=== PATIENT | female | born 1960 | race Caucasian/White ===

== ENCOUNTER 2017-08-07 11:14 | Inpatient (IN) | payer MEDICARE ==
[~2017-08-07] VITALS: Ht 162.6 cm; Wt 61.2 kg
[2017-08-07] MEDS ORDERED: QUET50TA PO (11:33)
[2017-08-07] MEDS ORDERED: CITA20TA11 PO (11:33)
[2017-08-07] MEDS ORDERED: CARB1TAB40 PO (11:33)
[2017-08-07] MEDS ORDERED: PROGESTERONE (11:33)
[2017-08-07] MEDS ORDERED: CARB-93 PO (11:33)
[2017-08-07] MEDS ORDERED: MENEST (11:33)
[2017-08-07] MEDS ORDERED: KLONOPIN (11:33)
--- NOTE | 2017-08-07 11:45 | NUR ---
DR CAZARES AT THE BEDSIDE FOR MSE.
[2017-08-07 12:22] LABS: BASOPHILS % (AUTO) 0.4 % (0.0-2.0); EOSINOPHILS % (AUTO) 0.3 % (0.0-7.0); HEMATOCRIT 38.2 % (31.2-41.9); HEMOGLOBIN 13.2 g/dL (10.9-14.3); LYMPHOCYTES # (AUTO) 1.4 K/uL (20.0-40.0); LYMPHOCYTES % (AUTO) 16.6 % (20.5-51.5); MEAN CORPUSCULAR HGB CONC 35 g/dL (32.3-35.6); MEAN CORPUSCULAR VOLUME 86.4 fL (75.5-95.3); MONOCYTES # (AUTO) 0.5 K/uL (2.0-10.0); MONOCYTES % (AUTO) 6.2 % (0.0-11.0); NEUTROPHILS # (AUTO) 6.5 K/uL (1.8-8.9); NEUTROPHILS % (AUTO) 76.5 % (38.5-71.5); PLATELET COUNT (AUTO) 141 K/uL (179-408); RED BLOOD CELL COUNT(AUTO) 4.42 MIL/uL (3.63-4.92); WHITE BLOOD COUNT (AUTO) 8.5 K/uL (3.8-11.8)
--- NOTE | 2017-08-07 12:26 | NUR ---
PER B+C REP. PT'Sheng LORD WHO TAKES CARE OF THE PARKINSON'S STIMULANT IS DR CARLOTA NOLAND AT [phone] CELL.
[2017-08-07 12:30] LABS: CREATININE 0.8 mg/dL (0.6-1.3); POTASSIUM 3.3 mmol/L (3.5-5.1)
--- NOTE | 2017-08-07 12:30 | NUR ---
PT OUT OF ER FOR XRAY.
[2017-08-07 12:45] LABS: BILIRUBIN,TOTAL 0.7 mg/dL (0.2-1.0); TOTAL PROTEIN, SERUM 7.3 g/dL (6.4-8.2)
[2017-08-07 13:53] LABS: *BLOOD, URINE NEGATIVE (NEGATIVE); *CLARITY,URINE CLEAR (CLEAR); *COLOR,URINE YELLOW (YELLOW); *KETONES,URINE 2+ (NEGATIVE); *PROTEIN,URINE NEGATIVE (NEGATIVE); *UROBILINOGEN,URINE 0.2 E.U./dl (NORMAL); LEUKOCYTE ESTERASE ,URINE TRACE (NEGATIVE); NITRITE, URINE NEGATIVE (NEGATIVE); PH,URINE 5.5 (5.0-8.0); UGLUCOSE NEGATIVE (NEGATIVE)
[2017-08-07 13:56] LABS: *BILIRUBIN,URIN 1+ (NEGATIVE)
[2017-08-07 13:58] LABS: BACTERIA,URINE FEW /HPF (NONE SEEN); SQUAMOUS EPITHELIAL CELL,UR MANY /HPF (NONE SEEN)
--- NOTE | 2017-08-07 14:02 | NUR ---
TDOD consult requested from Dr. Mantilla. SW arrived to ED and met with KHOI Lacy and Dr. Mantilla to consult on case. SW then met with patient, who was in her assigned ED bed and receptive to meeting with TODD. Patient is a 56 year old female with diagnosis of Parkinson's Disease. Patient was cooperative, maintained appropriate eye contact, affect and behavior WNL. Patient is oriented, although some of her responses were slightly slow. Speech was clear, but tone of voice was low. Patient has been living in a small 4-person B & C for the last 2 months. Patient was brought to the ED today by the caregivers from the [facility] due to multiple falls. Patient walks with a FWW ([employer]) but that she tends to lose her balance. Caregivers Remedios and Meredith confirmed patient's loss of balance incidents, and stated that a caregiver is always with her in the home and that often times patient's loss of balance will result in the caregiver holding the patient from her waist as patient slides down. Caregiver Mercedezi stated that they have made special arrangements throughout the house to support patient's loss of balance incidents, such as lowering her bed close to the ground in order to avoid falls, or setting up her couch in a way that helps support her physical limitations. SW discussed with patient the supportive services that patient has, and patient stated that she has HH services (nursing, PT, and ST) at the & , along with the caregivers. Patient is also seen regularly by a neurologist, which caregiver Meredith stated she saw very recently. Patient's insurance is Medicare and [employer]. Patient does not qualify for [facility] funded caregiver services, but SW did discuss the option of private caregiver agencies as an additional supportive resource, but patient stated that she does not feel like she needs an additional caregiver at this time. SW asked patient if she feels she has sufficient care and support at the [facility], and patient stated that she did. No further interventions needed at this time. SW reported above to Dr. Mantilla and KHOI Lacy. See Dr. Mantilla's notes for medical interventions/plan of care.
--- NOTE | 2017-08-07 14:02 | NUR ---
PT IS IN BED. PT SOMES NO SIGNS OF DISTRESS. PT IS AOX4. WAITING FURTHER MD ORDERS. WILL CONTINUE TO MONITOR.
[2017-08-07] MEDS ORDERED: POTASSIUM CHLORIDE 20 MEQ TAB.PRT.SR PO ONE (14:15)
[2017-08-07] MEDS ORDERED: IV NS 1000 ML 1,000 ML IV ONE (14:15)
[2017-08-07] MEDS ORDERED: POTASSIUM CHLORIDE 20 MEQ TAB.PRT.SR ONE (14:37)
--- NOTE | 2017-08-07 17:45 | NUR ---
RECEIVED CLIENT IN HER ROOM, SHE WAS TRANSPORTED VIA A GURNEY FROM THE ER. NO APPARENT S/S OF DISTRESS, DISCOMFORT OR SOB. CLIENT IS BEING ADMITTED FOR WEAKNESS AND FREQUENT FALLS. CLIENT WAS ABLE TO PROVIDE ANSWERS FOR THE INITIAL ASSESSMENT AND INITIAL PHYSICAL ASSESSMENT. SKIN IS INTACT, SAT 96% AT ROOM AIR. BED AT LOWEST POSITION FOR SAFETY AND CALL LIGHT WITHIN REACH FOR ASSISTANCE
[2017-08-07 19:00] VITALS: BP 104/62
[2017-08-07] MEDS ORDERED: ZOLPIDEM 5 MG TABLET PO PRN (19:00)
[2017-08-07] MEDS ORDERED: HYDROCODONE/APAP 5-325MG TABLET PO PRN (19:00)
[2017-08-07] MEDS ORDERED: MAGNESIUM HYDROXIDE 30 ML LIQUID UDC PO PRN (19:00)
[2017-08-07] MEDS ORDERED: ACETAMINOPHEN 325 MG TABLET PO PRN (19:00)
[2017-08-07] MEDS ORDERED: ONDANSETRON 4 MG/2 ML VIAL IV PRN (19:00)
--- NOTE | 2017-08-07 19:41 | NUR ---
REPORT GIVEN TO PLATFORM MATERIAL HANDLING SUPERVISOR. CLIENT IS STABLE, ATE DINNER. IN A SEMI FOWLERS POSITION. NO APPARENT SIGNS AND SYMPTOMS OF DISTRESS
[2017-08-07] MEDS ORDERED: CEFTRIAXONE 1 G in IV DEXTROSE 5% 50 ML IV SCH (20:00)
[2017-08-07] MEDS ORDERED: DOCUSATE SODIUM 250 MG CAPSULE PO SCH (21:00)
[2017-08-07] MEDS: CARBIDOPA/LEVODOPA 25-100MG TABLET PO SCH (21:00)
[2017-08-07] MEDS ORDERED: CARBIDOPA/LEVODOPA CR 50-200MG TABLET.SA PO SCH (21:00)
[2017-08-07] MEDS: POTASSIUM CHLORIDE 20 MEQ in IV 1/2NS 1000 ML 1,000 ML IV PRN (21:34)
--- NOTE | 2017-08-07 22:51 | NUR ---
Pt states she takes the 25/100 dose of Sinemet in the daytime.
[2017-08-08] VITALS: BP 110/68
[2017-08-08 04:00] VITALS: BP 95/43
--- NOTE | 2017-08-08 04:25 | NUR ---
Pt resting quietly in bed past administration of prn Ambien earlier in the evening. Respirations are even, unlabored on room air, BBS CTA. Denies pain/discomfort. Pt is on fall precautions, reviewed with pt who stated understanding and is complying with precautions. No tremors noted in intentional movement. Bed exit alarm is activated, lights adjusted in room for safety and call light is with pt.
[2017-08-08] MEDS ORDERED: PANTOPRAZOLE SODIUM 40 MG TABLET.DR PO SCH (07:00)
--- NOTE | 2017-08-08 07:30 | NUR ---
RECEIVED CLIENT IN BED IN A SEMI FOWLERS POSITION SLEEPING COMFORTABLY. NO APPARENT SIGNS AND SYMPTOMS OF SOB, PAIN, DISTRESS OR DISCOMFORT. BED IS LOWEST POSITION FOR SAFETY. CALL LIGHT WITHIN REACH FOR ASSISTANCE
[2017-08-08 08:23] LABS: BASOPHILS # (AUTO) 0.1 K/uL (0.0-8.0); EOSINOPHILS # (AUTO) 0.1 K/uL (0.0-0.7); EOSINOPHILS % (AUTO) 1.2 % (0.0-7.0); HEMATOCRIT 36.9 % (31.2-41.9); HEMOGLOBIN 12.5 g/dL (10.9-14.3); LYMPHOCYTES # (AUTO) 1.9 K/uL (20.0-40.0); MEAN CORPUSCULAR HEMOGLOBIN 29.2 uug (24.7-32.8); MEAN CORPUSCULAR HGB CONC 34 g/dL (32.3-35.6); MEAN CORPUSCULAR VOLUME 86.5 fL (75.5-95.3); MONOCYTES # (AUTO) 0.5 K/uL (2.0-10.0); MONOCYTES % (AUTO) 8.5 % (0.0-11.0); NEUTROPHILS # (AUTO) 3.3 K/uL (1.8-8.9); NEUTROPHILS % (AUTO) 57.3 % (38.5-71.5); PLATELET COUNT (AUTO) 126 K/uL (179-408); RED BLOOD CELL COUNT(AUTO) 4.27 MIL/uL (3.63-4.92); WHITE BLOOD COUNT (AUTO) 5.8 K/uL (3.8-11.8)
[2017-08-08 08:40] LABS: BILIRUBIN,TOTAL 0.5 mg/dL (0.2-1.0); CREATININE 0.6 mg/dL (0.6-1.3); MAGNESIUM 1.9 mg/dL (1.8-2.4); PHOSPHOROUS 3.8 mg/dL (2.5-4.9); POTASSIUM 3.7 mmol/L (3.5-5.1); TOTAL PROTEIN, SERUM 6.1 g/dL (6.4-8.2)
[2017-08-08 08:50] LABS: THYROID STIMULATING HORMONE 1.197 mIU/mL (0.358-3.740)
[2017-08-08] MEDS ORDERED: QUETIAPINE FUMARATE 25 MG TABLET PO SCH (09:00)
[2017-08-08] MEDS ORDERED: Medication Not On Formulary EA (Quetiapine Fumarate (Seroquel) 50 MG) PO SCH (09:00)
[2017-08-08] MEDS ORDERED: CITALOPRAM 20 MG TABLET PO SCH (09:00)
--- NOTE | 2017-08-08 09:30 | NUR ---
PHYSICAL THERAPY EVALUATION. CLIENT TOLERATED AMBULATION WELL WITH THE ASSISTANCE OF TWO PTS AND WALKER. NO APPARENT SIGNS AND SYMPTOMS OF PAIN, DISTRESS, DISCOMFORT OR SOB.
[2017-08-08] MEDS: CARBIDOPA/LEVODOPA 25-100MG TABLET PO SCH ×3 (09:56→16:10)
--- NOTE | 2017-08-08 10:03 | NUR ---
CLIENT TOOK ONLY ONE OUT TWO QUETIAPINE FUMARATE, SEROQUEL. SECOND DOSE WAS RETURNED TO THE PHARMACY RETURN BOX. PHARMACY AWARE
[2017-08-08 11:35] VITALS: BP 98/55
--- NOTE | 2017-08-08 11:37 | NUR ---
TELEMETRY HAS BEEN D/C
[2017-08-08 15:40] VITALS: BP 93/56
[2017-08-08] MEDS ORDERED: DOCU250C14 PO (16:33)
[2017-08-08] MEDS ORDERED: CEFT1VIA15 IV (16:33)
[2017-08-08] MEDS ORDERED: ACET325T53 PO (16:33)
[2017-08-08] MEDS ORDERED: HYDR-3326 PO ×2 (16:33→21:40)
[2017-08-08] MEDS ORDERED: MAGN400O6 PO ×2 (16:33→21:40)
[2017-08-08] MEDS ORDERED: PANT40TA2 PO (16:33)
[2017-08-08] MEDS ORDERED: QUET25TA PO ×2 (16:33→21:40)
[2017-08-08] MEDS ORDERED: ATOR20TA PO ×2 (16:33→21:40)
[2017-08-08] MEDS: POTASSIUM CHLORIDE 20 MEQ in IV 1/2NS 1000 ML 1,000 ML IV PRN (18:53)
--- NOTE | 2017-08-08 19:45 | NUR ---
CLIENT WILL BE DISCHARGE TO REHAB. CLIENT HAS NE COMPLIANT WITH ALL NURSING CARE. NO SIGNS AND SYMPTOMS OF PAIN, DISTRESS, SOB OR DISCOMFORT. BED AT LOWEST POSITION FOR SAFETY AND CALL LIGHT WITHIN REACH FOR ASSISTANCE
--- NOTE | 2017-08-08 20:00 | NUR ---
REPORTED FROM RN THAT PATIENT SLID OFF OF HER FWW/CHAIR. VOICE ENGINEER ASSISTED BACK TO BED. PATIENT ASSESSED. WNL. VSS. DENIES PAIN OR DISCOMFORT. PATIENT IS A/O X3. NOTIFIED DR. OLEG. LORD AWARE. NO NEW ORDERS. ALL NEEDS ATTENDED.
--- NOTE | 2017-08-08 20:35 | NUR ---
RECEIVED REPORT FOR PATIENT TO BE DISCHARGED TO ACUTE REHAB. REPORT GIVEN TO KHOI WAN. VSS UPON DISCHARGE. PATIENT DENIES ANY PAIN OR DISCOMFORT. NO RESP. DISTRESS NOTED. ALL NEEDS ATTENDED.
[2017-08-08] MEDS ORDERED: ATORVASTATIN 20 MG TABLET PO SCH (21:00)
[2017-08-08] MEDS ORDERED: CITA20TA11 PO (21:40)
[2017-08-08] MEDS ORDERED: QUET50TA PO (21:40)
[2017-08-08] MEDS ORDERED: CARB1TAB40 PO (21:40)
[2017-08-08] MEDS ORDERED: CARB-93 PO (21:40)
[2017-08-08] MEDS ORDERED: CEFT1FRO2 IV (21:40)
[2017-08-08] MEDS ORDERED: DOCU100C36 PO (21:40)
[2017-08-08] MEDS ORDERED: PANT40TA4 PO (21:40)
[2017-08-08] MEDS ORDERED: ACET-2154 PO (21:40)
== END 2017-08-08 20:35 | DRG 57 ==
LOC: ER 11:14 → TELE 17:20 → MED 08-08 11:40
PROVIDERS: ADMIT Internal Medicine; ATTEND Internal Medicine
DX: G20 Parkinson's disease (principal); D68.59 Other primary thrombophilia; N39.0 Urinary tract infection, site not specified; G90.8 Other disorders of autonomic nervous system; W19.XXXA Unspecified fall, initial encounter; Z74.09 Other reduced mobility; M50.31 Other cervical disc degeneration, high cervical region; E87.6 Hypokalemia; T79.6XXA Traumatic ischemia of muscle, initial encounter; Z91.81 History of falling; F99 Mental disorder, not otherwise specified
CPT/HCPCS: 36415; 70030-TC; 71045; 72040; 72072; 72100; 72170; 83735; 84100; 84443; 85025; 93005; A4663; J0696; J3480; J3490; J7030; J7060

== ENCOUNTER 2017-08-08 16:19 | Inpatient (IN) | payer MEDICARE ==
[~2017-08-08] VITALS: Ht 162.6 cm; Wt 68.9 kg
[~2017-08-08 16:19] MED LIST: CARB-93 PO; CARB1TAB40 PO; CITA20TA11 PO; KLONOPIN; MENEST; PROGESTERONE; QUET50TA PO
[2017-08-08] MEDS ORDERED: CEFT1VIA15 IV (16:33)
[2017-08-08] MEDS ORDERED: HYDR-3326 PO ×2 (16:33→21:40)
[2017-08-08] MEDS ORDERED: MAGN400O6 PO ×2 (16:33→21:40)
[2017-08-08] MEDS ORDERED: PANT40TA2 PO (16:33)
[2017-08-08] MEDS ORDERED: ATOR20TA PO ×2 (16:33→21:40)
[2017-08-08] MEDS ORDERED: QUET25TA PO ×2 (16:33→21:40)
[2017-08-08] MEDS ORDERED: ACET325T53 PO (16:33)
[2017-08-08] MEDS ORDERED: DOCU250C14 PO (16:33)
--- NOTE | 2017-08-08 21:00 | NUR ---
Received patient from med surg floor. Report given by med surg nurse. patient a/o X3 with periods of forgetfulness. Admit Dx of Parkinsons Disease & weakness. pt is stable, no signs of pain, sob, or acute distress. MD Quinonez aware of pt admission to rehab unit. Pertinent assessment completed. pt noted with IV site left hand 20g. vitals stable at start of shift. bed in low position x2 side rails up. bed alarm on. pt will be on ATB therapy for UTI. call light placed within reach of pt. encouraged pt to use call light when in need of assistance. will continue to monitor pt through shift.
[2017-08-08 21:29] VITALS: BP 114/62
[2017-08-08] MEDS ORDERED: Z GUARD REMEDY PASTE 57 GM TUBE TOP PRN (21:30)
[2017-08-08] MEDS ORDERED: CEFT1FRO2 IV (21:40)
[2017-08-08] MEDS ORDERED: QUET50TA PO (21:40)
[2017-08-08] MEDS ORDERED: CITA20TA11 PO (21:40)
[2017-08-08] MEDS ORDERED: CARB1TAB40 PO (21:40)
[2017-08-08] MEDS ORDERED: PANT40TA4 PO (21:40)
[2017-08-08] MEDS ORDERED: CARB-93 PO (21:40)
[2017-08-08] MEDS ORDERED: ACET-2154 PO (21:40)
[2017-08-08] MEDS ORDERED: DOCU100C36 PO (21:40)
[2017-08-08] MEDS ORDERED: HYDROCODONE/APAP 5-325MG TABLET PO PRN (23:30)
[2017-08-09] MEDS ORDERED: CEFTRIAXONE 1 G VIAL ONE (00:25)
[2017-08-09] MEDS: CEFTRIAXONE 1 G in IV DEXTROSE 5% 50 ML IV SCH ×2 (00:27→23:02)
--- NOTE | 2017-08-09 05:31 | NUR ---
Patient had difficulty sleeping through the shift. no signs of pain, sob, or acute distress. vital signs stable through shift. all needs attended to. all meds administered as ordered per md. pt was uncooperative & attempted to get out of bed several times through shift. enforced bed alarm. pt kept near nurses' station. bed in low position, locked, x2 side rails up. safety measures implemented. call light within reach of pt. will endorse to day shift nurse.
[2017-08-09] MEDS: PANTOPRAZOLE SODIUM 40 MG TABLET.DR PO SCH (06:18)
[2017-08-09] MEDS ORDERED: PANTOPRAZOLE SODIUM 40 MG TABLET.DR PO ONE (06:30)
[2017-08-09 07:30] VITALS: BP 127/73
--- NOTE | 2017-08-09 07:30 | NUR ---
patient noted sitting up in bed on cell phone, no complaints of pain, no signs of distress, x2 bed rails, bed alarm in place, call light in reach, bed locked and in lowest position, all needs met at this time
[2017-08-09] MEDS ORDERED: Medication Not On Formulary EA (Quetiapine Fumarate (Seroquel) 50 MG) PO SCH (09:00)
[2017-08-09] MEDS: CARBIDOPA/LEVODOPA 25-100MG TABLET PO SCH ×4 (09:48→20:26)
[2017-08-09] MEDS: CITALOPRAM 20 MG TABLET PO SCH (09:49)
[2017-08-09] MEDS: QUETIAPINE FUMARATE 25 MG TABLET PO SCH ×2 (09:49→20:26)
--- NOTE | 2017-08-09 19:30 | NUR ---
Patient received from day shift nurse. Shift report at bedside. patient lying in bed comfortably at start of shift with no signs of pain, sob, or acute distress. pertinent assessment completed. bed in low position x3 side rails up. bed alarm checked at start of shift. call light placed within reach of pt. encouraged pt to use call light when in need of assistance. will continue to monitor pt through shift.
[2017-08-09 19:57] VITALS: BP 117/61
[2017-08-09] MEDS: ATORVASTATIN 20 MG TABLET PO SCH (20:26)
[2017-08-09] MEDS: DOCUSATE SODIUM 100 MG CAPSULE PO SCH (20:26)
[2017-08-09] MEDS: CARBIDOPA/LEVODOPA CR 50-200MG TABLET.SA PO SCH (20:26)
--- NOTE | 2017-08-10 05:43 | NUR ---
patient slept well through the night. encouraged pt to use call light when needing assistance. pt attempted to get out of bed once without calling for help. bed alarm on and checked regularly. safety measures implemented. bed locked and in low position x3 side rails up. all needs attended to. all meds administered as ordered per md. will endorse to day shift nurse.
[2017-08-10] MEDS: PANTOPRAZOLE SODIUM 40 MG TABLET.DR PO SCH (06:15)
--- NOTE | 2017-08-10 07:54 | NUR ---
Patient is awake and alert, in bed, not in any pain and not in distress. Safety implemented, bed locked and on a low position, floor is non-slippery and dry, belongings and call light in reach.
[2017-08-10 08:04] VITALS: BP 99/52
[2017-08-10] MEDS: CARBIDOPA/LEVODOPA 25-100MG TABLET PO SCH ×4 (08:50→21:27)
[2017-08-10] MEDS: CITALOPRAM 20 MG TABLET PO SCH (08:52)
[2017-08-10] MEDS: QUETIAPINE FUMARATE 25 MG TABLET PO SCH ×2 (08:52→21:27)
--- NOTE | 2017-08-10 17:33 | NUR ---
Patient was stable all through out the shift, denies any form of pain and not in any discomfort, patient stated having a better day today, she participated with her PT/OT session today, she tolerated the therapy well. All her needs were attended promptly, safety was implemented at all times, bed is locked, on a low position and the alarm is on. Patient is currently on her antibiotic therapy for UTI with no adverse side effects at this time, she was rendered with good pericare, and she denies discomfort upon urination at this time, she was kept clean and dry. Call light and belongings all placed within easy reach.
--- NOTE | 2017-08-10 19:30 | NUR ---
Patient seen during rounds, laying in bed, alert and verbally responsive. Vital signs taken and recorded. Breathing even and nonlabored. Safety measures provided. Bed on low position. Call light in reach. will monitor the patient.
[2017-08-10 20:03] VITALS: BP 111/66
[2017-08-10] MEDS: CARBIDOPA/LEVODOPA CR 50-200MG TABLET.SA PO SCH (21:27)
[2017-08-10] MEDS: DOCUSATE SODIUM 100 MG CAPSULE PO SCH (21:27)
[2017-08-10] MEDS: ATORVASTATIN 20 MG TABLET PO SCH (21:27)
[2017-08-10] MEDS: CEFTRIAXONE 1 G in IV DEXTROSE 5% 50 ML IV SCH (23:35)
[2017-08-11] MEDS: PANTOPRAZOLE SODIUM 40 MG TABLET.DR PO SCH (06:28)
--- NOTE | 2017-08-11 08:05 | NUR ---
Received patient awake, verbally responsive, not in any form of acute distress. She denies any form of acute distress. Call light placed within reach. Reminded to use call light for assistance with verbalized understanding. Assisted to her needs.
--- NOTE | 2017-08-11 08:32 | NUR ---
I agree Addendum: 08/11/17 at 9498 by KARAN WALLACE OT Amended: Links added.
--- NOTE | 2017-08-11 08:33 | NUR ---
I agree Addendum: 08/11/17 at 6800 by KARAN WALLACE OT Amended: Links added.
[2017-08-11] MEDS: QUETIAPINE FUMARATE 25 MG TABLET PO SCH ×2 (08:54→20:37)
[2017-08-11] MEDS: CARBIDOPA/LEVODOPA 25-100MG TABLET PO SCH ×4 (08:54→20:37)
[2017-08-11] MEDS: CITALOPRAM 20 MG TABLET PO SCH (08:54)
[2017-08-11 10:57] VITALS: BP 97/55
--- NOTE | 2017-08-11 18:51 | NUR ---
Notified Dr. Ray regarding patient having no BM and ordered. Dulcolax 10mg PO x1. Order carried out. Patient made aware.
[2017-08-11] MEDS ORDERED: BISACODYL 5 MG TABLET.DR PO ONE (19:00)
[2017-08-11 19:30] VITALS: BP 111/68
--- NOTE | 2017-08-11 19:30 | NUR ---
Received patient from day shift nurse. Shift report at bedside. pt is a/o x3 with unclear speech, but understandable at times. no signs of pain, sob, or acute distress at start of shift. Vital signs stable at start of shift. pt lying in bed comfortably, bed in locked position, low, x3 side rails up. Made sure bed alarm is on since pt has a Hx of frequent falls. pertinent assessment completed. call light placed within reach of pt. encouraged pt to use call light when in need of assistance. will continue to monitor pt through shift.
[2017-08-11] MEDS: SULFAMETH/TRIMETH 800/160 MG TABLET PO SCH (20:37)
[2017-08-11] MEDS: DOCUSATE SODIUM 100 MG CAPSULE PO SCH (20:37)
[2017-08-11] MEDS: CARBIDOPA/LEVODOPA CR 50-200MG TABLET.SA PO SCH (20:37)
[2017-08-11] MEDS: ATORVASTATIN 20 MG TABLET PO SCH (20:37)
--- NOTE | 2017-08-12 05:38 | NUR ---
patient slept intermittently through shift. no acute changes noted. vital signs stable through shift. all needs attended to. all meds administered as ordered per md. bed alarm checked frequently. encouraged pt to use call light when needing assistance. safety measures implemented. bed in low position, locked, x2 side rails up. will endorse to day shift nurse.
[2017-08-12] MEDS: PANTOPRAZOLE SODIUM 40 MG TABLET.DR PO SCH (06:17)
[2017-08-12] MEDS: SULFAMETH/TRIMETH 800/160 MG TABLET PO SCH ×2 (08:53→20:20)
[2017-08-12] MEDS: CITALOPRAM 20 MG TABLET PO SCH (08:53)
[2017-08-12] MEDS: QUETIAPINE FUMARATE 25 MG TABLET PO SCH ×2 (08:53→20:20)
[2017-08-12] MEDS: CARBIDOPA/LEVODOPA 25-100MG TABLET PO SCH ×4 (08:53→20:20)
[2017-08-12 09:56] VITALS: BP 109/65
--- NOTE | 2017-08-12 10:13 | NUR ---
Up with speech therapy. Tolerating therapy well.
--- NOTE | 2017-08-12 10:26 | NUR ---
Received patient awake, alert x3. Morning care done. Denies any pain, not in any form of distress. Reminded patient to use call light for needs and when she needs to use the bathroom.
[2017-08-12] MEDS: ACETAMINOPHEN 325 MG TABLET PO PRN (12:37)
--- NOTE | 2017-08-12 12:38 | NUR ---
Mild pain over left lower extremities. PRN Tylenol given
--- NOTE | 2017-08-12 18:11 | NUR ---
Denies any pain. Reminded patient to use call light when in need to use bathroom. Bed alarm on, bed in low position. Call light within reach.
[2017-08-12 19:30] VITALS: BP 104/60
--- NOTE | 2017-08-12 19:30 | NUR ---
Patient lying in bed at start of shift with no signs of pain, sob, or acute distress. vital signs stable at start of shift. bed in low position, locked, x3 side rails up. made sure bed alarm is on since pt has hx of falls & getting out of bed without using call light. pertinent assessment completed. to administer last dose of ATB Bactrim DS this shift. environmental safety check completed in pt room. call light placed within reach of pt. will continue to monitor pt through shift.
[2017-08-12] MEDS: ATORVASTATIN 20 MG TABLET PO SCH (20:20)
[2017-08-12] MEDS: DOCUSATE SODIUM 100 MG CAPSULE PO SCH (20:20)
[2017-08-12] MEDS: CARBIDOPA/LEVODOPA CR 50-200MG TABLET.SA PO SCH (20:20)
[2017-08-12] MEDS: MAGNESIUM HYDROXIDE 30 ML LIQUID UDC PO PRN (20:20)
--- NOTE | 2017-08-13 05:41 | NUR ---
patient continues to attempt to get out of bed without assistance when needing to use the bathroom. bed alarm checked frequently through shift. bed in low position & locked. assisted pt to bathroom as needed. safety measures implemented. all needs attended to. all meds administered as ordered per md. vital signs stable through shift. call light within reach of pt. will endorse to day shift nurse.
[2017-08-13] MEDS: PANTOPRAZOLE SODIUM 40 MG TABLET.DR PO SCH (06:15)
[2017-08-13 08:23] VITALS: BP 112/62
--- NOTE | 2017-08-13 08:30 | NUR ---
Received patient awake, alert x3. Patient impulsive with standing up. Reminded patient to use call light for needs or if she needs to use the bathroom. Complains of mild pain over lower extremity. Not in any form of distress. Call light within reach. Bed in low position. Side rails up x3.
[2017-08-13] MEDS: QUETIAPINE FUMARATE 25 MG TABLET PO SCH ×2 (09:30→20:42)
[2017-08-13] MEDS: ACETAMINOPHEN 325 MG TABLET PO PRN (09:30)
[2017-08-13] MEDS: CARBIDOPA/LEVODOPA 25-100MG TABLET PO SCH ×4 (09:30→20:42)
[2017-08-13] MEDS: CITALOPRAM 20 MG TABLET PO SCH (09:30)
--- NOTE | 2017-08-13 10:40 | NUR ---
Still with no bowel movement. Offered prune juice. Assisted to bathroom.
--- NOTE | 2017-08-13 12:14 | NUR ---
For psyche consult. Informed U and informed Dr Gaines.
[2017-08-13] MEDS ORDERED: BISACODYL 10 MG SUPP.RECT RC PRN (12:30)
--- NOTE | 2017-08-13 19:30 | NUR ---
Patient received from day shift nurse. patient sitting up right in bed at start of shift with no signs of pain, sob, or acute distress. Patient is a/o x3 but forgetful. Pertinent assessments completed. Noted with 22G IV site on right wrist. Bed in low position x3 side rails up, and locked. Bed alarm on and checked at start of shift. vital signs stable. call light placed within reach of pt. will continue to monitor pt through shift.
[2017-08-13 20:42] VITALS: BP 108/62
[2017-08-13] MEDS: ATORVASTATIN 20 MG TABLET PO SCH (20:42)
[2017-08-13] MEDS: DOCUSATE SODIUM 100 MG CAPSULE PO SCH (20:42)
[2017-08-13] MEDS: CARBIDOPA/LEVODOPA CR 50-200MG TABLET.SA PO SCH (20:42)
--- NOTE | 2017-08-14 05:40 | NUR ---
Patient noted talking to herself while sleeping. frequent rounds done on pt. stable through shift with no signs of pain, sob, or acute distress. vital signs stable. all needs attended to. all meds administered as ordered per md. safety measures implemented. bed in low position x3 side rails up. bed alarm checked through out shift. encouraged pt to use call light when needing assistance to the bathroom. pt was compliant during this shift with using call light. will endorse to day shift nurse.
[2017-08-14] MEDS: PANTOPRAZOLE SODIUM 40 MG TABLET.DR PO SCH (06:08)
[2017-08-14 08:00] VITALS: BP 109/71
[2017-08-14] MEDS: CARBIDOPA/LEVODOPA 25-100MG TABLET PO SCH ×4 (10:07→21:23)
[2017-08-14] MEDS: CITALOPRAM 20 MG TABLET PO SCH (10:07)
[2017-08-14] MEDS: QUETIAPINE FUMARATE 25 MG TABLET PO SCH ×3 (10:08→21:23)
--- NOTE | 2017-08-14 10:51 | NUR ---
RECEIVED PATIENT IN BED, AFEBRILE, ON ROOM AIR AND TOLERATED WELL, NO S/S OF ACUTE RESP. DISTRESS. NO C/O OF PAIN. CALL LIGHT WITH IN REACH, HOB UP AT ALL TIMES, BED IN LOW POSITION.
[2017-08-14] MEDS: MAGNESIUM HYDROXIDE 30 ML LIQUID UDC PO PRN (16:30)
--- NOTE | 2017-08-14 16:44 | NUR ---
[address] Raquel MURDOCK WITH NEW ORDER, NOTED AND CARRIED OUT, PATIENT MADE AWARE
--- NOTE | 2017-08-14 19:40 | NUR ---
Received pt in bed, AAO x 3. No acute distress noted. Verbally responsive and able to make needs known. Denies pain or discomfort at this time. All safety measures and fall precautions maintained. Call light and all personal belongings within reach. Will continue to monitor.
[2017-08-14 20:49] VITALS: BP 100/68
[2017-08-14] MEDS: DOCUSATE SODIUM 100 MG CAPSULE PO SCH (21:23)
[2017-08-14] MEDS: ATORVASTATIN 20 MG TABLET PO SCH (21:23)
[2017-08-14] MEDS: CARBIDOPA/LEVODOPA CR 50-200MG TABLET.SA PO SCH (21:23)
[2017-08-15] MEDS: PANTOPRAZOLE SODIUM 40 MG TABLET.DR PO SCH (06:35)
[2017-08-15 08:00] VITALS: BP 99/46
--- NOTE | 2017-08-15 10:00 | NUR ---
RECEIVED PATIENT IN BED, AFEBRILE, ON ROOM AIR AND TOLERATED WELL, NO S/S OF ACUTE RESP. DISTRESS. NO C/O OF PAIN. CALL LIGHT WITH IN REACH, HOB UP AT ALL TIMES, BED IN LOW POSITION. Addendum: 08/15/17 at 1159 by LAZARO HAMLIN LVN Received patient in bed, alert/oriented x 4 with confusion at times. Verbally responsive and able to make needs known. Denies pain or discomfort at this time. No acute distress, no respiratory distress noted. All safety measures and fall precautions maintained. Call light and all personal belongings within reach. Will continue to monitor
[2017-08-15] MEDS: CARBIDOPA/LEVODOPA 25-100MG TABLET PO SCH ×4 (10:13→21:14)
[2017-08-15] MEDS: CITALOPRAM 20 MG TABLET PO SCH (10:13)
[2017-08-15] MEDS: QUETIAPINE FUMARATE 25 MG TABLET PO SCH ×4 (10:14→21:14)
--- NOTE | 2017-08-15 11:20 | NUR ---
SEEN AND EXAMINED BY DR. Raquel MURDOCK NO NEW ORDER
[2017-08-15] MEDS ORDERED: QUETIAPINE FUMARATE 25 MG TABLET PO PRN (12:00)
--- NOTE | 2017-08-15 13:53 | NUR ---
INTERDISCIPLINARY TEAM CONFERENCE
--- NOTE | 2017-08-15 16:18 | NUR ---
Received patient awake, alert x2. Sitting in chair. Denies any pain. Call light within reach. Instructed to call when she needs to use the bathroom or for any other needs.
--- NOTE | 2017-08-15 18:58 | NUR ---
Stable thought the shift. Denies any pain. Encouraged to call for needs. Bed in low position. Bed alarm on. Side rails up x3.
[2017-08-15 20:34] VITALS: BP 115/70
[2017-08-15] MEDS: CARBIDOPA/LEVODOPA CR 50-200MG TABLET.SA PO SCH (21:14)
[2017-08-15] MEDS: DOCUSATE SODIUM 100 MG CAPSULE PO SCH (21:14)
[2017-08-15] MEDS: ATORVASTATIN 20 MG TABLET PO SCH (21:14)
--- NOTE | 2017-08-16 01:30 | NUR ---
Patient had an episode of auditory and visual hallucination. Pt woke up and was yelling. Started speaking incoherently and being aggressive. Patient stated seeing a girl in a marrero. No suicidal ideation. Junior Art Director in the unit at this time and called MHU charge nurse who helped calming down the patient. Seroquel PRN given. Patient now sleeping. Will closely monitor patient.
--- NOTE | 2017-08-16 05:27 | NUR ---
Patient slept intermittently. Noted talking to herself but no suicidal ideation. Patient appears to be confused and forgetful. Reoriented patient to the unit and situation. Safety measures maintained. Call light and personal belongings within reach. Will endorse to day shift RN. Continue to monitor.
[2017-08-16] MEDS: PANTOPRAZOLE SODIUM 40 MG TABLET.DR PO SCH (06:20)
--- NOTE | 2017-08-16 08:00 | NUR ---
Received patient awake, up on bed, verbally responsive, able to make needs known, afebrile, not in any form of acute distress. She denies any pain or discomfort at this time. Call light placed within reach. Reminded to use call light for assistance with verbalized understanding.
[2017-08-16 08:55] VITALS: BP 105/62
[2017-08-16] MEDS: CARBIDOPA/LEVODOPA 25-100MG TABLET PO SCH ×4 (09:00→20:37)
[2017-08-16] MEDS: QUETIAPINE FUMARATE 25 MG TABLET PO SCH ×4 (09:01→20:36)
[2017-08-16] MEDS: CITALOPRAM 20 MG TABLET PO SCH (09:01)
--- NOTE | 2017-08-16 13:29 | NUR ---
Offered patient dulcolax suppository PRN as ordered for constipation but patient refused to get it at this time and stated later in the day. Abdomen soft, no tenderness. Patient able to pass gas. Offered prune juice and patient agreed. Will continue to monitor.
--- NOTE | 2017-08-16 19:35 | NUR ---
Pt sitting comfortably on the chair and talking on the phone. No acute distress noted. No c/o pain or discomfort. Safety measures maintained. Bed alarm on. Call light and personal belongings within reach. Will continue to monitor.
[2017-08-16 20:31] VITALS: BP 108/64
[2017-08-16] MEDS: MAGNESIUM HYDROXIDE 30 ML LIQUID UDC PO PRN (20:36)
[2017-08-16] MEDS: CARBIDOPA/LEVODOPA CR 50-200MG TABLET.SA PO SCH (20:36)
[2017-08-16] MEDS: DOCUSATE SODIUM 100 MG CAPSULE PO SCH (20:37)
[2017-08-16] MEDS: ATORVASTATIN 20 MG TABLET PO SCH (20:37)
--- NOTE | 2017-08-17 04:55 | NUR ---
Patient slept comfortably t/o the night. Meds given per MD's order. Pt has been compliant. Assisted to the bathroom as needed. Vital signs stable. All needs attended to promptly. Will endorse to day shift RN. Continue to monitor.
[2017-08-17] MEDS: PANTOPRAZOLE SODIUM 40 MG TABLET.DR PO SCH (06:21)
[2017-08-17 08:00] VITALS: BP 101/67
--- NOTE | 2017-08-17 08:10 | NUR ---
Received patient awake, alert x3. No in any form of distress. Denies any pain. Still with periods of impulsivity. Reminded patient to use call light for needs and if she needs to use the bathroom. Bed in low position, side rails up x3.
[2017-08-17] MEDS: CITALOPRAM 20 MG TABLET PO SCH (09:28)
[2017-08-17] MEDS: CARBIDOPA/LEVODOPA 25-100MG TABLET PO SCH ×4 (09:28→20:23)
[2017-08-17] MEDS: QUETIAPINE FUMARATE 25 MG TABLET PO SCH ×4 (09:28→20:23)
--- NOTE | 2017-08-17 09:57 | NUR ---
Patient up with physical therapy. Tolerating therapy well.
--- NOTE | 2017-08-17 17:08 | NUR ---
Informed Dr. Lora of hallucinations and incoherent speech one night before. said to inform GPS om duty. Informed [facility] and said they will inform inspector outside steam distribution.
[2017-08-17] MEDS ORDERED: BISACODYL 5 MG TABLET.DR PO ONE ×2 (19:15→19:44)
--- NOTE | 2017-08-17 19:39 | NUR ---
Patient sitting at bedside. AAO x3. No acute distress noted. No c/o pain or discomfort. Safety measures maintained. Call light and personal belongings within reach. Will continue to monitor.
[2017-08-17 20:16] VITALS: BP 112/69
[2017-08-17] MEDS: ATORVASTATIN 20 MG TABLET PO SCH (20:23)
[2017-08-17] MEDS: DOCUSATE SODIUM 100 MG CAPSULE PO SCH (20:23)
[2017-08-17] MEDS: CARBIDOPA/LEVODOPA CR 50-200MG TABLET.SA PO SCH (20:24)
[2017-08-17] MEDS ORDERED: BISACODYL 5 MG TABLET.DR PO PRN (21:00)
--- NOTE | 2017-08-18 05:36 | NUR ---
Pt slept comfortably t/o the night with minimal episodes of talking to self. VSS. Meds given per MD's order. Pt compliant. Assisted to the bathroom as needed. All needs attended to promptly. Will endorse to day shift RN. Continue to monitor.
[2017-08-18] MEDS: PANTOPRAZOLE SODIUM 40 MG TABLET.DR PO SCH (06:23)
--- NOTE | 2017-08-18 08:30 | NUR ---
Received patient awake, alert x3. Denies any pain. Instructed to call for needs and if she needs to use the bathroom. Side rails upx3. Bed in low position. Call light within reach.
[2017-08-18 08:43] VITALS: BP 111/68
[2017-08-18] MEDS: CITALOPRAM 20 MG TABLET PO SCH (09:32)
[2017-08-18] MEDS: CARBIDOPA/LEVODOPA 25-100MG TABLET PO SCH ×4 (09:32→20:42)
[2017-08-18] MEDS: QUETIAPINE FUMARATE 25 MG TABLET PO SCH ×4 (09:33→20:43)
--- NOTE | 2017-08-18 10:35 | NUR ---
Seen and examined by Dr. Lora. Dr said to monitor and report any agitation, combative behavior or other changes so that Dr. can adjust medications as appropriate.
[2017-08-18] MEDS ORDERED: BISACODYL 5 MG TABLET.DR PO PRN (11:15)
--- NOTE | 2017-08-18 20:05 | NUR ---
Received patient seated on her wheelchair, alert, awake, verbally responsive and was watching TV. Vital signs taken and recorded. Denies of any pain. Safety measures provided, bed on low position and bed alarm on.
[2017-08-18] MEDS: ATORVASTATIN 20 MG TABLET PO SCH (20:42)
[2017-08-18] MEDS: CARBIDOPA/LEVODOPA CR 50-200MG TABLET.SA PO SCH (20:42)
[2017-08-18] MEDS: DOCUSATE SODIUM 100 MG CAPSULE PO SCH (20:43)
[2017-08-18 21:28] VITALS: BP 106/71
[2017-08-19] MEDS: PANTOPRAZOLE SODIUM 40 MG TABLET.DR PO SCH (06:56)
[2017-08-19 07:12] VITALS: BP 108/60
[2017-08-19] MEDS: CARBIDOPA/LEVODOPA 25-100MG TABLET PO SCH ×4 (08:40→21:25)
[2017-08-19] MEDS: CITALOPRAM 20 MG TABLET PO SCH (08:40)
[2017-08-19] MEDS: QUETIAPINE FUMARATE 25 MG TABLET PO SCH ×4 (08:41→21:25)
--- NOTE | 2017-08-19 09:31 | NUR ---
SBAR report received, board updated. Pt assessed, awake, alert, and oriented x3, no c/o pain, no distress or SOB. Pt able to make needs known, Pt requesting to speak with alcides. Pt consumed 100% of breakfast and assisted with walker to bathroom. Voiding and BM x1. Pt. Compliant with all routine morning medications, administered pills whole. V/S taken 108/60, 96% on RA, 57 pulse, 98.1 temp, and 18 RR. Bed locked, and in lowest position with side rails up x2 and bed alarm on. Personal items and call light within reach. All comfort and safety measures met at this time. Will continue to monitor.
--- NOTE | 2017-08-19 10:38 | NUR ---
Dr. Yun, neurologist and Parkinson specialist called requesting to speak with MD regarding Pt plan of care, response to medications, and discharge placement. nurse unit manager contacted regarding placement for pending discharge, tomorrow. Will contact MD to convey 's concerns and will follow up.
[2017-08-19 19:00] VITALS: BP 124/68
--- NOTE | 2017-08-19 19:07 | NUR ---
Pt sitting in semi-fowlers. Pt denies pain at this time. Spoke again with Juan Daniel regarding placement following d/c. All comfort and safety measures met. Call light within reach, and Pt reminded to utilize for all needs. Will continue to monitor and endorse to manager shift.
--- NOTE | 2017-08-19 19:35 | NUR ---
Received patient laying in bed, awake, alert x3. Not in any form of distress.Breathing even and nonlabored. Denies any pain. Placed call light in reach. Reminded patient to use call light for needs and if she needs to use the bathroom. Safety measures provided. Bed in low position, side rails up x3.will monitor the patient.
[2017-08-19 20:38] VITALS: BP 124/68
[2017-08-19] MEDS: CARBIDOPA/LEVODOPA CR 50-200MG TABLET.SA PO SCH (21:25)
[2017-08-19] MEDS: ATORVASTATIN 20 MG TABLET PO SCH (21:26)
[2017-08-19] MEDS: DOCUSATE SODIUM 100 MG CAPSULE PO SCH (21:26)
[2017-08-20] MEDS: PANTOPRAZOLE SODIUM 40 MG TABLET.DR PO SCH (06:52)
--- NOTE | 2017-08-20 07:45 | NUR ---
patient noted sitting up in bed with lights on, no complaints of pain, no signs of distress, call light in reach, bed locked and in lowest position, x [address]
[2017-08-20 08:00] VITALS: BP 94/53
[2017-08-20] MEDS: CITALOPRAM 20 MG TABLET PO SCH (09:00)
[2017-08-20] MEDS: CARBIDOPA/LEVODOPA 25-100MG TABLET PO SCH ×2 (09:00→14:10)
[2017-08-20] MEDS: QUETIAPINE FUMARATE 25 MG TABLET PO SCH ×2 (09:00→14:10)
--- NOTE | 2017-08-20 15:40 | NUR ---
Patient discharged to [facility] via gurney and ambulance, all belongings accounted for and transported with patient, salesperson furs Kimberly notified of patient estimated arrival, exit care provided, patient refused Flu vaccination, discharge instructions provided, 103/60, 78 pulse, 20 respirations, 98% on room air
== END 2017-08-20 15:40 | disposition home health service (06) | DRG 57 ==
PROVIDERS: ADMIT Physical Medicine & Rehabilitation Pain Medicine; ATTEND Physical Medicine & Rehabilitation Pain Medicine
DX: G20 Parkinson's disease (principal); D68.59 Other primary thrombophilia; M62.82 Rhabdomyolysis; F33.3 Major depressive disorder, recurrent, severe with psychotic symptoms; G90.8 Other disorders of autonomic nervous system; N39.0 Urinary tract infection, site not specified; R29.6 Repeated falls; Z91.81 History of falling; E78.5 Hyperlipidemia, unspecified; F09 Unspecified mental disorder due to known physiological condition; Z87.891 Personal history of nicotine dependence; F41.9 Anxiety disorder, unspecified; M50.321 Other cervical disc degeneration at C4-C5 level; M47.892 Other spondylosis, cervical region; R53.1 Weakness; R45.87 Impulsiveness
CPT/HCPCS: 70030-TC; 92507; 92523; 97110; 97112; 97116; 97165; 97530; 97535; A4663; J0696; J7050; J7060